=== PATIENT | female | born 1990 | race American Indian/Alaskan Native ===

== ENCOUNTER 2021-02-19 17:26 | Emergency (ER) | payer MEDICAID ==
--- NOTE | 2021-02-19 20:36 | Event Note ---
ED Screening Note Date of service: 02/19/21 Time: 20:30 ED Screening Note: 30-year-old A1 female patient with recent history of pharmacological termination of presents to the emergency department with complaints of dizziness and generalized weakness progressively worsening for approximately 1 week and nausea/vomiting starting today. Patient states she has not been able to keep any food or fluids down all day today. Patient was prescribed Methotrexate last month and took the medication on February 02. Her symptoms began approximately 1 week later. Patient has been experiencing very minimal vaginal bleeding. She has been bleeding through less than 1 pad/tampon in a 24-hour period since she took the medication. Patient also has a 1-year-old and is currently breast-feeding. Last alcohol consumption was approximately 24 hours ago. General: Awake, appropriately interactive, no acute distress. Eyes: PERRL. EOMI. Neck: Supple. Full range of motion intact. Cardiovascular: Normal peripheral perfusion. Pulmonary: No respiratory distress. Patient is speaking normally without use of accessory muscles. Skin: No apparent rashes or lesions. Neurological: No facial asymmetry. Speech is clear. Follows commands. Patient is alert and oriented. Musculoskeletal: Moves all four extremities spontaneously with normal range of motion. Psych: Cooperative. Appropriate mood and affect. I have greeted and performed a focused rapid initial assessment of this patient. A comprehensive ED assessment and evaluation of the patient, analysis of all test results, and completion of the medical decision-making process will be conducted by additional ED providers. This initial assessment/diagnostic orders/clinical plan/treatment(s) is/are subject to change based on patients health status, clinical progression and re-assessment. Further treatment and workup at subsequent clinical provider's discretion. Patient/guardian urged not to elope from the ED as their condition may be serious if not clinically assessed and managed.
[2021-02-19 21:02] LABS: Basophils % (Auto) 0.4 % (0.0-1.8); Hematocrit 28.7 % (30.3-42.9); Hemoglobin 10.3 gm/dl (10.1-14.3); Lymphocytes # (Auto) 1.2 K/mm3 (1.2-5.4); Lymphocytes % (Auto) 13.9 % (13.4-35.0); Mean Corpuscular HGB Conc 36 % (30-34); Mean Corpuscular Volume 88 fl (79-97); Monocytes # (Auto) 0.4 K/mm3 (0.0-0.8); Monocytes % (Auto) 4.4 % (0.0-7.3); Platelet Count 393 K/mm3 (140-440); Red Blood Count 3.26 M/mm3 (3.65-5.03); Red Cell Distribution Width 13.7 % (13.2-15.2)
[2021-02-19] MEDS ORDERED: ONDANSETRON 4 MG/2 ML INJ IV ONE (21:14)
[2021-02-19] MEDS ORDERED: SODIUM CHLORIDE 0.9% 1000 ML 1,000 ML IV ONE (21:14)
--- NOTE | 2021-02-19 21:17 | Emergency Department Report ---
ED General Adult HPI - General Chief complaint: Dizziness Stated complaint: NAUSEA, DIZZINESS LIGHT HEADED Time Seen by Provider: 02/19/21 21:06 Source: patient Mode of arrival: Ambulatory Limitations: No Limitations - History of Present Illness Initial comments: Patient is 30 years old female with recent history of on February 02 by taking methotrexate according to the patient report. Patient stated that she has been having, nausea and vomiting. Patient stated that she is unable to keep anything down. Patient also complaining of dizziness. 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 She stated that she follow-up with her clinic and they told her that everything was fine. Patient denied any fever or chills. - Related Data Allergies Allergy/AdvReac Type Severity Reaction Status Date / Time No Known Allergies Allergy Verified 02/20/21 00:23 ED Review of Systems ROS: Stated complaint: NAUSEA, DIZZINESS LIGHT HEADED Other details as noted in HPI Comment: All other systems reviewed and negative Constitutional: denies: chills, fever Respiratory: denies: cough, shortness of breath, SOB with exertion Cardiovascular: denies: chest pain, palpitations Gastrointestinal: nausea, vomiting. denies: abdominal pain Genitourinary: other (Decreased urine output.) Musculoskeletal: denies: back pain Neurological: weakness. denies: headache, numbness, paresthesias, confusion, abnormal gait Psychiatric: denies: depression, auditory hallucinations, visual hallucinations, homicidal thoughts, suicidal thoughts ED Past Medical Hx - Past Medical History Previous Medical History?: No - Surgical History Past Surgical History?: No ED Physical Exam - General Limitations: No Limitations General appearance: alert, in no apparent distress - Head Head exam: Present: atraumatic, normocephalic, normal inspection - ENT ENT exam: Present: mucous membranes dry - Neck Neck exam: Present: normal inspection, full ROM. Absent: tenderness, meningismus - Respiratory Respiratory exam: Present: normal lung sounds bilaterally - Cardiovascular Cardiovascular Exam: Present: regular rate, normal rhythm, normal heart sounds - GI/Abdominal GI/Abdominal exam: Present: soft, normal bowel sounds. Absent: distended, tenderness, guarding, rebound, rigid, organomegaly, mass, bruit, pulsatile mass, hernia - Extremities Exam Extremities exam: Present: normal inspection, full ROM, normal capillary refill. Absent: tenderness, pedal edema, joint swelling, calf tenderness - Back Exam Back exam: Present: normal inspection, full ROM. Absent: CVA tenderness (R), CVA tenderness (L) - Neurological Exam Neurological exam: Present: alert, oriented X3, CN II-XII intact, normal gait, reflexes normal. Absent: motor sensory deficit - Psychiatric Psychiatric exam: Present: normal mood - Skin Skin exam: Present: warm, dry, intact, normal color ED Course Vital Signs 02/19/21 18:54 Temperature 98.9 F Pulse Rate 78 Respiratory 18 Rate Blood Pressure 109/51 O2 Sat by Pulse 100 Oximetry ED Medical Decision Making - Lab Data Result diagrams: 02/19/21 20:37 02/19/21 20:37 - Radiology Data Radiology results: report reviewed - Medical Decision Making Patient is 30 years old female with recent history of on February 02 by taking methotrexate according to the patient report. Patient stated that she has been having, nausea and vomiting. Patient stated that she is unable to keep anything down. Patient also complaining of dizziness. 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 She stated that she follow-up with her clinic and they told her that everything was fine. Patient denied any fever or chills. Patient received normal saline, Zofran. No vomiting observed. Reviewed and is unremarkable. Pelvic ultrasound showed no products of conception. Patient given prescription for Zofran and advised to follow-up with her OB doctor in the next 2 to 3 days and to return to the ER if she develop any symptoms. Critical care attestation.: If time is entered above; I have spent that time in minutes in the direct care of this critically ill patient, excluding procedure time. ED Disposition Clinical Impression: Acute nausea with nonbilious vomiting Disposition: HOME / SELF CARE / HOMELESS Is pt being admited?: No Condition: Stable Instructions: Nausea and Vomiting, Adult Referrals: PRIMARY CARE, [Primary Care Provider] - 3-5 Days
[2021-02-19 21:24] LABS: Alanine Aminotransferase 13 units/L (7-56); Albumin 4.3 g/dL (3.9-5); BUN/Creatinine Ratio 13; Blood Urea Nitrogen 8 mg/dL (7-17); Hemolysis Index 2
--- NOTE | 2021-02-19 23:33 | Ultrasound Report ---
OB ultrasound INDICATION: Pelvic pain FINDINGS: Left paracentral visualized. Uterus measures 8.0 x 3.2 x 4.8 cm. Endometrium is thickened m easuring 3.6 mm. Right ovary appears normal measuring 2.3 x 1.6 x 1.9 cm. Echogenic area seen in the cervix measuring 1.0 x 1.3 x 1.1 cm IMPRESSION: 1. No definite gestational sac or live intrauterine . HCG is still very low and follow-up wi th quantitative hCG to determine if there is been a failed versus early . Clinical correlation and follow-up recommended. 2. Echogenic area seen in the cervix measuring 1.0 x 1.3 x 1.1 cm. This does not appear to represent a gestational sac however cannot be completely excluded. No definite pole yolk sac or gestation al sac. Findings could also represent small amount of bleeding. Follow-up with [facility]. Signer Name: Sotero Goetz MD Signed: 02/19/2021 11:29 PM Workstation Name: [email or web address]
[2021-02-20] MEDS ORDERED: SODIUM CHLORIDE 0.9% 1000 ML 1,000 ML ONE (00:20)
[2021-02-20] MEDS ORDERED: ONDANSETRON 4 MG/2 ML INJ ONE (00:20)
[2021-02-20 01:49] LABS: Bilirubin,Urine NEG (Negative); Blood,Urine NEG (Negative); Color,Urine Yellow (Yellow); Mucus,Urine 3+ /HPF; Urobilinogen,Urine < 2.0 mg/dL (<2.0)
[2021-02-20 01:51] VITALS: BP 128/78
--- NOTE | 2021-02-21 10:07 | Electrocardiograph Report ---
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
== END 2021-02-20 01:30 | disposition home or self-care (01) ==
LOC: ED 17:26
DX: R11.2 Nausea with vomiting, unspecified (principal)
CPT/HCPCS: 36415; 76801; 80053; 81001; 83735; 84702; 85025; 93005; 96361; 96374; 99284; J2405; J7030; 80320; G0480